=== PATIENT | female | born 1965 | race Caucasian/White ===

== ENCOUNTER → 2017-06-28 | Outpatient (CLI) | payer OTHER ==
[~2017-06-28] MED LIST: FOSAMAX 70 MG T70 MG PO; MOBIC15 MG PO; PROTONIX40 M1 PO; ZOFRAN ODT4 MG PO
== END ==
LOC: RAD 13:39
DX: Z12.31 Encounter for screening mammogram for malignant neoplasm of breast (principal)

== ENCOUNTER → 2018-08-15 | Outpatient (CLI) | payer OTHER | LOC: RAD 10:56 | DX: Z12.31 Encounter for screening mammogram for malignant neoplasm of breast (principal) ==

== ENCOUNTER 2020-12-11 08:53 | Emergency (ER) | payer OTHER ==
[~2020-12-11] VITALS: Ht 162.6 cm; Wt 49.4 kg
[2020-12-11] MEDS ORDERED: ZOFRAN ODT4 MG PO (10:36)
[2020-12-11 10:40] VITALS: BP 116/68
--- NOTE | 2020-12-12 07:17 | EKG ---
[place] [address] [facility] [employer] [place] [address] ELECTROCARDIOGRAM REPORT Name: WILBUR ARCE Room #: [facility]#: [id number] Admission: 12/11/20 Attend Phys: Discharge: 12/11/20 Date of : 61 Report #: [id number] [facility] ED Test Date: 2020-12-11 Test Time: 10:26:05 Pat Name: WILBUR GRAJEDA Department: Room: Gender: F Dog [employer] Judge: GUERLINE : 1965 Requested By: Simon Stover Order Number: [id number] MD: Jhonatan Schwartz Measurements Intervals [place] Rate: 54 P: 54 IA: 101 QRS: 11 QRSD: 100 T: 61 QT: 436 QTc: 414 Interpretive Statements Sinus rhythm Short IA interval RSR' in V1 or V2, right VCD or RVH No previous ECG available for comparison Electronically Signed On 12-12-2020 7:16:58 CDT by Jhonatan Schwartz [email or web address] <ELECTRONICALLY SIGNED> By: Jhonatan Schwartz MD, [facility] 12/12/20 0716 1026 1026 Jhonatan Schwartz MD, FACChavez /EPI
== END 2020-12-11 10:40 | disposition home or self-care (01) ==
LOC: ER 08:53
DX: U07.1 COVID-19 (principal); Z88.2 Allergy status to sulfonamides